=== PATIENT | male | born 2000 | race Hispanic/Latino ===

== ENCOUNTER 2021-01-28 05:10 | Emergency (ER) | payer SELFPAY ==
[2021-01-28] MEDS ORDERED: Boostrix 0.5 ML (Tdap) VIAL ONE (05:40)
== END 2021-01-28 06:08 | disposition home or self-care (01) ==
LOC: CSHERS 05:10
DX: S02.2XXA Fracture of nasal bones, initial encounter for closed fracture (principal); V00.141A Fall from scooter (nonmotorized), initial encounter
CPT/HCPCS: 12011; 70450; 70486; 72125; 90471; 90715